=== PATIENT | male | born 1990 | race Two or more races ===

== ENCOUNTER 2018-11-30 09:20 | Emergency (ER) | payer OTHER ==
[~2018-11-30] VITALS: Ht 165.1 cm; Wt 59.0 kg
[2018-11-30 09:20] VITALS: BP 143/80
[~2018-11-30 09:20] MED LIST: NKM
--- NOTE | 2018-11-30 09:20 | NUR ---
ED Nurse Note: Patient brought in to ER by ambulance from street due to abdominal pain. Patient is alert and oriented x2-3 and ambulatory. Skin clean and intact. Anxious and talkative with flight idea. Patient was told to point out where is hurting and patient pointed the whole body. patient is in gown and on hide selector.
--- NOTE | 2018-11-30 09:22 | NUR ---
ED Nurse Note: Patient provided address which is his sister's and he said he can stay there, however, pt was currently living on the [address] until pt was transferred here. Homeless log initiated.
--- NOTE | 2018-11-30 09:33 | Emergency Room Report ---
History of Present Illness General Chief Complaint: Abdominal Pain Source: Patient Present Illness HPI Patient is a 27-year-old male who presented after increased left-sided flank pain. Patient reports having onset this morning. He also reports having recently been hospitalized at another facility and been given medications. He states that he lost his medications. He does not know which hospital that he was at. He had recently been drinking alcohol heavily. He reports using methamphetamine last night. He does not report any a prior surgical history. Pain is sharp in nature, moderate in intensity. No nausea , diarrhea.or fever. Patient denies dysuria, hematuria. genital discharge. No change with exertion. Worse with bowel movement. Allergies: Coded Allergies: No Known Allergies (Unverified , 10/04/14) Patient History Past Medical History: see triage record Reviewed Nursing Documentation: PMH: Agreed; PSxH: Agreed Nursing Documentation-PMH Past Medical History: No History, Except For Review of Systems All Other Systems: negative except mentioned in HPI Physical Exam Vital Signs Date Time Temp Pulse Resp B/P (MAP) Pulse Ox O2 Delivery O2 Flow Rate FiO2 11/30/18 09:09 98.1 101 16 126/82 (97) 99 Room Air Sp02 EP Interpretation: reviewed, normal General Appearance: normal inspection, well appearing, no apparent distress, alert, GCS 15 Head: atraumatic ENT: normal ENT inspection, hearing grossly normal, normal voice Neck: normal inspection, full range of motion, supple, no bony tend Respiratory: normal inspection, lungs clear, normal breath sounds, no respiratory distress, no retraction, no wheezing Cardiovascular #1: regular rate, rhythm, no edema Gastrointestinal: normal inspection, normal bowel sounds, non tender, soft, no guarding, no hernia Genitourinary: no CVA tenderness Musculoskeletal: normal inspection, back normal, normal range of motion Neurologic: normal inspection, alert, oriented x3, responsive, 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 Jean, the Treating physician, has assessed whether the patient is alert and oriented to person, place and time and has determined that the patient is clinically stable for discharge. Diagnostic Impression: Primary Impression: Drug overdose Additional Impression: Cystitis ER Course Patient presented for left-sided flank pain. Patient presented for flank pain. Differential diagnosis included was not limited to pneumonia, renal stone, rib fracture, pulmonary embolism, ulcer, enteritis, pyelonephritis among others CT imaging of the abdomen pelvis read by radiology showed lung bases which are clear, gallbladder and pancreas appear normal. Bowel gas is nonobstructive. There is no free fluid. Patient was noted to have some fatty liver as well as some bladder thickening.Patient noted to have urine drug screen positive for amphetamine. Patient was noted to have improvement after medications.Patient was given IV Ativan due to anxiety and agitation which is likely due to methamphetamine abuse.Patient was noted to have some improvement.Patient's urinalysis showed some evidence of mild bladder infection and so patient will be treated with antibiotics. He was given empiric dose in the emergency department. He was also given prescription for Keflex. Patient appears to be stable for discharge. Labs Test 11/30/18 09:30 White Blood Count 6.8 K/UL (4.8-10.8) Red Blood Count 4.91 M/UL (4.70-6.10) Hemoglobin 16.1 G/DL (14.2-18.0) Hematocrit 47.8 % (42.0-52.0) Mean Corpuscular Volume 97 FL (80-99) Mean Corpuscular Hemoglobin 32.7 PG (27.0-31.0) Mean Corpuscular Hemoglobin Concent 33.6 G/DL (32.0-36.0) Red Cell Distribution Width 11.6 % (11.6-14.8) Platelet Count 269 K/UL (150-450) Mean Platelet Volume 6.7 FL (6.5-10.1) Neutrophils (%) (Auto) 70.5 % (45.0-75.0) Lymphocytes (%) (Auto) 18.2 % (20.0-45.0) Monocytes (%) (Auto) 6.9 % (1.0-10.0) Eosinophils (%) (Auto) 2.7 % (0.0-3.0) Basophils (%) (Auto) 1.7 % (0.0-2.0) Prothrombin Time 10.2 SEC (9.30-11.50) Prothromb Time International Ratio 1.0 (0.9-1.1) Activated Partial Thromboplast Time 27 SEC (23-33) Urine Color Yellow Urine Appearance Clear Urine pH 6 (4.5-8.0) Urine Specific [place] 1.020 (1.005-1.035) Urine Protein Negative (NEGATIVE) Urine Glucose (UA) Negative (NEGATIVE) Urine Ketones 2+ (NEGATIVE) Urine Blood Negative (NEGATIVE) Urine Nitrite Negative (NEGATIVE) Urine Bilirubin Negative (NEGATIVE) Urine Urobilinogen 1 MG/DL (0.0-1.0) Urine Leukocyte Esterase 1+ (NEGATIVE) Urine RBC 0 /HPF (0 - 0) Urine WBC 2-4 /HPF (0 - 0) Urine Squamous Epithelial Cells Occasional /LPF Urine Bacteria Occasional /HPF (NONE) Urine Mucus Few /LPF (NONE/OCC) Sodium Level 142 MMOL/L (136-145) Potassium Level 4.1 MMOL/L (3.5-5.1) Chloride Level 103 MMOL/L (98-107) Carbon Dioxide Level 29 MMOL/L (21-32) Anion Gap 10 mmol/L (5-15) Blood Urea Nitrogen 7 mg/dL (7-18) Creatinine 0.9 MG/DL (0.55-1.30) Estimat Glomerular Filtration Rate > 60 mL/min (>60) Glucose Level 84 MG/DL (74-106) Calcium Level 9.2 MG/DL (8.5-10.1) Total Bilirubin 1.0 MG/DL (0.2-1.0) Aspartate Amino Transf (AST/SGOT) 112 U/L (15-37) Alanine Aminotransferase (ALT/SGPT) 116 U/L (12-78) Alkaline Phosphatase 104 U/L (46-116) Troponin I 0.000 ng/mL (0.000-0.056) Total Protein 7.9 G/DL (6.4-8.2) Albumin 4.4 G/DL (3.4-5.0) Globulin 3.5 g/dL Albumin/Globulin Ratio 1.3 (1.0-2.7) Lipase 153 U/L (73-393) Urine Opiates Screen Negative (NEGATIVE) Urine Barbiturates Screen Negative (NEGATIVE) Phencyclidine (PCP) Screen Negative (NEGATIVE) Urine Amphetamines Screen Positive (NEGATIVE) Urine Benzodiazepines Screen Positive (NEGATIVE) Urine Cocaine Screen Negative (NEGATIVE) Urine Marijuana (THC) Screen Negative (NEGATIVE) EKG Diagnostic Results Rate: normal Rhythm: NSR ST Segments: no acute changes Last Vital Signs Date Time Temp Pulse Resp B/P (MAP) Pulse Ox O2 Delivery O2 Flow Rate FiO2 11/30/18 09:09 98.1 101 16 126/82 (97) 99 Room Air Status: improved Disposition: HOME, SELF-CARE Condition: Stable Scripts Cephalexin* (KEFLEX*) 500 Mg Capsule 500 MG ORAL EVERY 6 HOURS, #28 CAP Prov: Eyad Jean MD 11/30/18 Eyad Jean MD Nov 30, 2018 09:33
--- NOTE | 2018-11-30 09:40 | NUR ---
ED Nurse Note: Patient is screaming and yelling loudely as stating "Fuck I am in pain. Nurse!"
[2018-11-30] MEDS ORDERED: LORazepam Inj 2mg/ml 1ml IV ONE (09:45)
[2018-11-30] MEDS ORDERED: Isovue-300 100ml vial INJ PRN (09:45)
[2018-11-30 09:53] LABS: BASOPHILS % (AUTO) 1.7 % (0.0-2.0); EOSINOPHILS % (AUTO) 2.7 % (0.0-3.0); HEMATOCRIT 47.8 % (42.0-52.0); HEMOGLOBIN 16.1 G/DL (14.2-18.0); LYMPHOCYTES % (AUTO) 18.2 % (20.0-45.0); MEAN CORPUSCULAR VOLUME 97 FL (80-99); MONOCYTES % (AUTO) 6.9 % (1.0-10.0); NEUTROPHILS % (AUTO) 70.5 % (45.0-75.0); PLATELET COUNT 269 K/UL (150-450); RED BLOOD COUNT 4.91 M/UL (4.70-6.10); RED CELL DISTRIBUTION WIDTH 11.6 % (11.6-14.8); WHITE BLOOD COUNT 6.8 K/UL (4.8-10.8)
[2018-11-30 09:56] LABS: APPEARANCE,URINE CLEAR; BILIRUBIN, URINE NEGATIVE (NEGATIVE); GLUCOSE, URINE (UA) NEGATIVE (NEGATIVE); KETONES,URINE 2+ (NEGATIVE); LEUKOCYTE ESTERASE ,URINE 1+ (NEGATIVE); NITRITE,URINE NEGATIVE (NEGATIVE); PH,URINE 6 (4.5-8.0); PROTEIN,URINE NEGATIVE (NEGATIVE); UROBILINOGEN,URINE 1 MG/DL (0.0-1.0)
[2018-11-30 10:02] LABS: ANION GAP 10 mmol/L (5-15); BLOOD UREA NITROGEN 7 mg/dL (7-18); CALCIUM 9.2 MG/DL (8.5-10.1); CARBON DIOXIDE 29 MMOL/L (21-32); CHLORIDE 103 MMOL/L (98-107); CREATININE 0.9 MG/DL (0.55-1.30); POTASSIUM 4.1 MMOL/L (3.5-5.1); SODIUM 142 MMOL/L (136-145)
[2018-11-30 10:09] LABS: COLOR,URINE YELLOW
[2018-11-30 10:12] LABS: ALANINE AMINOTRANSFERASE 116 U/L (12-78); ALBUMIN 4.4 G/DL (3.4-5.0); ALBUMIN/GLOBULIN RATIO 1.3 (1.0-2.7); ALKALINE PHOSPHATASE 104 U/L (46-116); ASPARTATE AMINO TRANSFERASE 112 U/L (15-37)
--- NOTE | 2018-11-30 10:29 | NUR ---
ED Nurse Note: pt went down for CT in stable condition.
--- NOTE | 2018-11-30 10:54 | NUR ---
ED Nurse Note: pt came back from CT scan in stable condition.
--- NOTE | 2018-11-30 11:25 | Diagnostic Imaging Report ---
Indication: Abdominal pain Technique: Continuous helical transaxial imaging of the abdomen and pelvis was obtained from the lung bases to the pubic symphysis during intravenous contrast administration. Coronal 2-D reformats were also obtained. Study obtained in a Siemens sensation [address] Automatic Exposure Control was utilized. Total Dose length Product (DLP): 507.[address] Dose Index Volume (CTDIvol): 9.5 mGy Comparison: None Findings: The lung bases are clear. The liver is low in attenuation consistent with fatty infiltration. Gallbladder, pancreas, spleen appear unremarkable. There is no adrenal mass. Kidneys are unremarkable. There is no hydronephrosis to appendix is partially seen and appears normal. Bowel gas pattern is nonobstructive. There is no free fluid. There is fairly marked thickening of the wall of the urinary bladder consistent with cystitis. Please correlate clinically. IMPRESSION: Evidence of cystitis with fairly marked thickening of the urinary bladder wall. Correlate clinically for infection. Fatty liver Negative examination otherwise The CT scanner at [facility] is accredited by the [employer] and the scans are performed using dose optimization techniques as appropriate to a performed exam including Automatic Exposure control.
[2018-11-30] MEDS ORDERED: CEPHALEXIN500 MG ORAL (12:14)
[2018-11-30] MEDS ORDERED: OMEPRAZOLE20 M2 ORAL (12:14)
[2018-11-30] MEDS ORDERED: cefTRIAXone 1 GM in NS 55 ML IVPB ONE (12:15)
[2018-11-30 12:57] VITALS: BP 113/58
[2018-11-30 13:30] VITALS: BP 126/60
--- NOTE | 2018-11-30 13:30 | NUR ---
Homeless Discharge: Patient is being discharged from medical care. Awake, alert and oriented x4. After care instructions, including referral to community resources were given. Patient verbalized understanding of After care instructions; Pt received PO ATB from [facility] pharmacy with instruction. Patient signed patient consent in the medical record for patient destination upon discharge. Pt will go to his sister's house but he does not remember the address. Pt said he knows how to get there. All medical devices such as IV and ID band were removed. Patient ambulated out with all personal belongings with steady gait.
== END 2018-11-30 13:30 | disposition home or self-care (01) ==
LOC: EDBD 09:20 → EMR 09:37
DX: N30.90 Cystitis, unspecified without hematuria (principal); K76.0 Fatty (change of) liver, not elsewhere classified; T43.621A Poisoning by amphetamines, accidental (unintentional), initial encounter; Y92.9 Unspecified place or not applicable
CPT/HCPCS: 36415; 74177; 80053; 80307; 81003; 83690; 84484; 85025; 85610; 85730; 96365; 96375; 99284; J0696; Q9967; S0028